=== PATIENT | male | born 2000 | race Two or more races ===

== ENCOUNTER 2020-12-08 17:56 | Emergency (ER) | payer MEDICAID, SELFPAY ==
[2020-12-08 18:32] VITALS: BP 145/75; PULSE 87; RESP 18; TEMP 36.7; O2SAT 98; BMI 32.8
--- NOTE | 2020-12-08 20:17 | PC.NURSE ---
PT EVALED BY ALLYN DHILLON. PT HAS LESIONS TO PENIS. HAD HERPES EXPOSURE. URINE REQUESTED.
--- NOTE | 2020-12-08 20:18 | ED.GENADULT ---
HPI - General Adult General Chief complaint: General Medical Stated complaint: rash Time Seen by Provider: 12/08/20 20:18 Source: patient and RN notes reviewed Mode of arrival: ambulatory Limitations: no limitations History of Present Illness HPI narrative: Patient reports to me that he had intercourse with his girlfriend and is having red bumps and itchiness to the head of his penis. Denies any discharge or any burning or pain with urination. Patient reports that his girlfriend shared have a with someone who had herpes. Girlfriend does not have any symptoms. Patient denies any other symptoms. Denies any fever or chills. Related Data Previous Rx's Medication Instructions Recorded valacyclovir [Valtrex] 1,000 mg PO BID #20 tab 12/08/20 Allergies Allergy/AdvReac Type Severity Reaction Status Date / Time No Known Allergies Allergy Verified 12/08/20 20:38 Review of Systems Review of Systems: Constitutional : No Weight loss, No Fever, No Chills, No Night Sweats, No Fatigue, No Malaise ENT/Mouth : No Hearing loss, No Ear Pain, No Nasal Congestion, No Sinus Pain, No Hoarseness, No sore throat, No Rhinorrhea, No Swallowing Difficulty Eyes: No Eye Pain, No Swelling, No Redness, No Foreign Body, No Discharge, No Vision Changes Cardiovascular : No Chest Pain, No SOB, No Dyspnea on Exertion, No Orthopnea, No Edema, No Palpitations Respiratory : No Cough, No Sputum, No Wheezing, No Smoke Exposure, No Dyspnea Gastrointestinal : No Nausea, No Vomiting, No Diarrhea, No Constipation, No abdominal Pain, No Hematochezia, No Melena Genitourinary : no irregular bleeding, No Dysuria, No Urinary Frequency, No Hematuria, No Urinary Incontinence, No Urgency, No Flank Pain, No Urinary Flow Changes, No Hesitancy, rash to the tip of the penis Musculoskeletal : No joint pain, No Myalgias, No Joint Swelling Skin : No Skin Lesions, No rash Neuro : No Weakness, No Numbness, No Paresthesias, No Loss of Consciousness, No Dizziness, No Headache Psych : No Anxiety/Panic, No Depression, No SI/HI/AH/VH, No Social Issues, Heme/Lymph: No Bruising, No Bleeding,No Lymphadenopathy Endocrine : No Polyuria, No Polydipsia, No Temperature Intolerance Yes all other systems are reviewed and are negative PMFSH Social History Social History Advance Directives: No Advance Directives Information Provided: No Physical Exam Vital Signs: Vital Signs: Last Vital Signs Temp 98.1 F 12/08/20 18:32 Pulse 87 12/08/20 18:32 Resp 18 12/08/20 18:32 BP 145/75 H 12/08/20 18:32 Pulse Ox 98 12/08/20 18:32 Body Mass Index 32.8 Const: General: healthy appearing, no acute distress and well developed Nutritional Appearance: well nourished Orientation/consciousness: patient oriented x3 Neck: Neck: Yes normal visual inspection, Yes full ROM and Yes trachea midline Thyroid: Thyroid normal Resp: Auscultation: clear to auscultation bilaterally Cardio: Rate: regular rate Rhythm: regular rhythm GI: Inspection: Yes normal to inspection and No distended Palpation (GI): No hepatosplenomegaly present Auscultation: normal bowel sounds : Penis: other (Red rash to the tip of the penis, no discharge) Skin: General skin exam: elasticity normal, turgor normal and dry skin Neuro: General: patient oriented x3 Course Course Course Narrative: 20-year-old male here today complaining of itchiness and rash to the tip of his penis. Patient reports that his girlfriend shared a vape with someone who had herpes and had intercourse together. Patient reports that his girlfriend does not have any symptoms. Patient denies any other symptoms. I will treat him for herpes with Valtrex, will get chlamydia and gonorrhea testing. Patient is agreeable to this plan and verbalizes understanding. He was given the opportunity to ask questions and all questions answered. Medical Decision Making Lab Data Labs: Lab Results 12/08/20 Range/Units 21:46 Urine Color YELLOW Urine Appearance CLEAR Urine pH 6.0 (5.0-8.0) Ur Specific [place] >= 1.030 H (1.005-1.025) Urine Protein NEG (NEG-TRACE) MG/DL Urine Glucose (UA) NEG (NEG) MG/DL Urine Ketones 15 (NEG) MG/DL Urine Blood NEG (NEG) Urine Nitrite NEG (NEG) Ur Leukocyte Esterase NEG (NEG) Discharge Plan Discharge Clinical Impression: Herpes genitalia Patient Disposition: Home, Self-Care Instructions: Genital Herpes Simplex (ED) Additional Instructions: You were seen here today for rash under genitals. You are medicated with antiviral medication. Please continue taking the medication until you finish. Please abstain from intercourse for as long as the or rash is visible. Please follow-up with your primary care doctor in 3 days. Please return to emergency department if you will have worsening symptoms or if you will experience any additional concerning symptoms Prescriptions: New valacyclovir [Valtrex] 1 gram tablet 1,000 mg PO BID Qty: 20 RF: 0 Interventions: ED Discharge Assessment Last Done: 12/08/20 22:30 Discharge Date/Time: 12/08/20 22:53
[2020-12-08 21:54] LABS: Glucose Urine UA NEG (NEG); Leukocyte Esterase Urine NEG (NEG); Nitrite Urine NEG (NEG); Specific Gravity - Urine >= 1.030 (1.005-1.025); Urine Blood NEG (NEG); Urine Ketones 15 MG/DL (NEG); Urine Protein NEG (NEG-TRACE)
[2020-12-08 21:55] LABS: Appearance Urine CLEAR; Color Urine YELLOW
[2020-12-09 12:42] LABS: CT PCR NOT DETECTED (Not Detect.); NG PCR NOT DETECTED (Not Detect.)
== END 2020-12-08 22:53 | disposition home or self-care (01) ==
PROVIDERS: Nurse Practitioner Family; Emergency Provider Internal Medicine
DX: A60.00 Herpesviral infection of urogenital system, unspecified (principal)
CPT/HCPCS: 81003; 87491; 87591; 99283; 99284